=== PATIENT | female | born 1970 | race Caucasian/White ===

== ENCOUNTER 2018-01-14 14:00 | Inpatient (IN) | payer OTHER ==
[~2018-01-14] VITALS: Ht 152.4 cm; Wt 77.1 kg
[2018-01-14] MEDS ORDERED: XANAX XR2 MG PO (15:14)
[2018-01-14] MEDS ORDERED: CLONAZEPAM2 MG PO (15:15)
[2018-01-14] MEDS ORDERED: LEVO-T25 MCG PO (15:16)
[2018-01-14] MEDS ORDERED: LYRICA300 MG PO (15:16)
[2018-01-14] MEDS ORDERED: ENALAPRIL MALEAT5 MG PO (15:16)
[2018-01-14] MEDS ORDERED: PERCOCET 10-321 EACH PO (15:17)
[2018-01-14] MEDS ORDERED: GABAPENTIN800 MG PO (15:17)
== END 2018-01-17 09:10 | disposition home or self-care (01) | DRG 735 ==
LOC: O/R 01-16 06:30 → OB/GYN 01-16 07:00 → O/R 01-16 16:51
PROVIDERS: Obstetrics & Gynecology Gynecologic Oncology
PROC: 07TC4ZZ Resection of Pelvis Lymphatic, Percutaneous Endoscopic Approach (ICD-10-PCS; 2018-01-16)
PROC: 0UT74ZZ Resection of Bilateral Fallopian Tubes, Percutaneous Endoscopic Approach (ICD-10-PCS; 2018-01-16)
PROC: 0UT24ZZ Resection of Bilateral Ovaries, Percutaneous Endoscopic Approach (ICD-10-PCS; 2018-01-16)
PROC: 0UT94ZZ Resection of Uterus, Percutaneous Endoscopic Approach (ICD-10-PCS; principal; 2018-01-16 07:00)
DX: D25.1 Intramural leiomyoma of uterus (principal); N72 Inflammatory disease of cervix uteri; N83.291 Other ovarian cyst, right side